=== PATIENT | female | born 1995 | race Caucasian/White ===

== ENCOUNTER 2018-07-08 19:56 | Emergency (ER) | payer MEDICAID, SELFPAY ==
[2018-07-08 20:34] LABS: Pregnancy Test - Urine (BHCG) Negative (Negative)
[2018-07-08 20:35] LABS: Clarity Hazy (Clear); Glucose, Urine (Dipstick) Negative (Negative); Leukocyte Negative (Negative); Nitrite Negative (Negative); Pregu Control Background? CLEAR/WHITE (CLR/WHITE); Pregu Control Bar Appear? YES (CONTROL BAR); Protein, Urine (Dipstick) 30 mg/dL (Neg-Trace); Specific Gravity 1.043 (1.002-1.036); Specific Gravity, Urine 1.043 (1.002-1.036)
[2018-07-08 20:36] LABS: Bilirubin Small (Negative); Blood, Urine Small (Negative); Urobilinogen 0.2 mg/dL (0.2-1.0)
[2018-07-08 20:44] LABS: Bacteria/HPF Rare-Few HPF (None Seen); Other Microscopic Description 2+ MUCUS; RBC/HPF 0-3 HPF (0-3); Squamous Epithelial 0-3 HPF (0-3); WBC/HPF 0-3 HPF (0-3)
--- NOTE | 2018-07-08 21:52 | RAD ---
TWO VIEWS ABDOMEN: 07/08/18 HISTORY: Abdominal pain since last night. Supine and upright views of the abdomen obtained. Two views abdomen demonstrate abdominal gas pattern to be nonspecific. No evidence of bowel obstructi on or ileus seen. No dilated loops of bowel seen. No evidence of free intraperitoneal air seen. IMPRESSION: Unremarkable two views abdomen. POS: [facility]
== END 2018-07-08 21:08 | disposition home or self-care (01) ==
LOC: BURERS 19:56
DX: K59.00 Constipation, unspecified (principal); Z79.899 Other long term (current) drug therapy
CPT/HCPCS: 74019; 81003; 81015; 81025